=== PATIENT | male | born 1980 | race Caucasian/White ===

== ENCOUNTER 2022-09-05 14:27 | Emergency (ER) | payer OTHER, SELFPAY ==
[2022-09-05] VITALS (11 sets, daily range): BP systolic 134–171; BP diastolic 87–110; PULSE 79–106; RESP 12–23; TEMP 36.9; O2SAT 97–100; BMI 29.7
--- NOTE | 2022-09-05 14:37 | DI.RAD.S_ITS ---
PROCEDURE: XR CHEST 1V INDICATIONS: chest pain TECHNIQUE: One view of the chest was acquired. COMPARISON: None. FINDINGS: Surgical changes and devices: None. Lungs and pleura: Lungs are clear. No pleural effusions or pneumothorax. Mediastinum: Mediastinal contours appear normal. Heart size is normal. Bones and chest wall: No suspicious bony lesions. Overlying soft tissues appear unremarkable. IMPRESSION: No acute process. Dictated by: Rj James M.D. on 09/05/2022 at 14:53 Approved by: Rj James M.D. on 09/05/2022 at 14:53
--- NOTE | 2022-09-05 14:57 | ED_ITS ---
HPI - Chest Pain General Chief Complaint: Chest Pain Stated Complaint: chest pain, shortness of breath, nausea Time Seen by Provider: 09/05/22 14:37 Source: patient Mode of arrival: Ambulatory Limitations: no limitations History of Present Illness HPI narrative: Patient is a 42-year-old male. Does admit that he just drank alcohol on a daily basis. His last drink was last evening. He states that several times a week he gets episodes where she becomes very nauseous and vomiting. It lasts for several hours/days and then completely resolves. He sometimes gets palpitations with them. He is never been evaluated for this. He states last evening he got another 1 of the episodes. Has been vomiting multiple times. Has had some blood with his vomit. No change in bowel habits. No abdominal pain. He also s tates this time he is getting some palpitations. This is worse than what he normally has. No fevers. No shortness of breath. Related Data Previous Rx's Medication Instructions Recorded doxycycline monohydrate 100 mg 100 mg PO BID #20 tabs 09/21/18 tablet clobetasol 0.05 % scalp solution 1 applictn topical DAILY PRN scalp 12/31/18 psoriasis #50 mL esomeprazole magnesium 20 mg 20 mg PO DAILY 14 days #14 caps 09/05/22 capsule,delayed release ondansetron 4 mg disintegrating 4 mg PO Q6H PRN nausea and 09/05/22 tablet vomiting #14 tabs Allergies Allergy/AdvReac Type Severity Reaction Status Date / Time No Known Drug Allergies Allergy Unverified 09/21/18 11:02 Review of Systems Constitutional Constitutional: Reports system reviewed and no additional complaints, except as documented Cardiovascular Cardiovascular: Reports system reviewed and no additional complaints, except as documented Respiratory Respiratory: Reports system reviewed and no additional complaints, except as documented Gastrointestinal Gastrointestinal: Reports system reviewed and no additional complaints, except as documented Genitourinary Genitourinary: Reports system reviewed and no additional complaints, except as documented Integumentary/Breasts Skin/Breast: Reports system reviewed and no additional complaints, except as documented Patient History Medical History Eczema (~2008) Plantar warts (~2009) Psoriasis (~2011) Social History Smoking Status: Former smoker Tobacco: How many years used: 5 second hand exposure: Yes alcohol intake: current (beer maybe 3 times a week.) substance use type: does not use Smoking Status: Former smoker alcohol intake frequency: 3 or more drinks per day Alcohol type: beer Substance Use Type: does not use Exam Initial Vital Signs Initial Vital Signs: Vital Signs Temperature 98.4 F 09/05/22 14:35 Pulse Rate 106 H 09/05/22 14:35 Respiratory Rate 20 09/05/22 14:35 Blood Pressure 171/110 H 09/05/22 14:35 Pulse Oximetry 98 09/05/22 14:35 Oxygen Delivery Method Room Air 09/05/22 14:35 Const General: cooperative, healthy appearing and No ill appearing HENMT Head: normal to inspection Resp Effort & Inspection: normal respiratory effort Auscultation: clear to auscultation bilaterally Cardio Rate: regular rate Rhythm: regular rhythm GI Inspection: normal to inspection and non-distended Skin General: no rashes or lesions noted Extrem General: No edema Course Orders Ordered: ED Orders 09/05/22 14:37 XR chest 1V Stat 09/05/22 14:41 EKG-12 Lead Stat 09/05/22 14:44 Complete Blood Count AUTO DIFF Stat Comprehensive Metabolic Panel Stat Lipase Stat Magnesium Stat Discontinued Medications Sodium Chloride (Normal Saline 0.9%) 1,000 mls @ 1,000 mls/hr IV BOLUS ONE Stop: 09/05/22 15:55 Last Admin: 09/05/22 15:07 Dose: 1,000 mls/hr Documented By: RB Ondansetron HCl (Ondansetron 4 Mg/2 Ml Inj) 4 mg IV NOW ONE Stop: 09/05/22 14:57 Last Admin: 09/05/22 15:08 Dose: 4 mg Documented By: RB Pantoprazole Sodium (Pantoprazole 40 Mg Vial) 40 mg IV NOW ONE Stop: 09/05/22 14:57 Last Admin: 09/05/22 15:08 Dose: 40 mg Documented By: RB Vital Signs Vital signs: Vital Signs - 8 hr 09/05/22 14:35 Temperature 98.4 F Pulse Rate 106 H Respiratory Rate 20 Blood Pressure 171/110 H Pulse Oximetry 98 Oxygen Delivery Method Room Air MDM - Chest Pain Lab Data 09/05/22 14:44 09/05/22 14:44 Labs: Lab Results 09/05/22 09/05/22 Range/Units 14:44 14:44 WBC 5.2 (4.5-11.0) X10^3/uL RBC 4.17 L (4.5-5.9) X10^6/uL Hgb 15.3 (13.5-17.5) g/dL Hct 44.1 (41-53) % MCV 105.8 H (80-100) fL MCH 36.8 H (26-34) PG MCHC 34.8 (30-36) % RDW 14.7 (11.6-14.8) % Plt Count 226 (150-400) X10^3/uL Neut % (Auto) 51.6 (50-75) % Lymph % (Auto) 36.5 (25-40) % [place] % (Auto) 10.6 (3-14) % Eos % (Auto) 0.3 L (2-4) % Baso % (Auto) 1.0 (0-2) % Neut # (Auto) 2700 (5607-0649) /uL Lymph # (Auto) 1900 (3537-1676) /uL [place] # (Auto) 500 (0-900) /uL Eos # (Auto) 0 (0-450) /uL Baso # (Auto) 0 (0-100) /uL Sodium 132 L (137-145) mmol/L Potassium 4.0 (3.4-5.1) mmol/L Chloride 91 L (98-107) mmol/L Carbon Dioxide 29 (22-32) mmol/L BUN 13 (9-20) mg/dL Creatinine 1.43 H (0.66-1.25) mg/dL Estimated GFR > 60 (>60) mL/min BUN/Creatinine Ratio 9.1 (6-22) Glucose 152 H (70-100) mg/dL Calcium 8.9 (8.4-10.2) mg/dL Magnesium 1.6 (1.6-2.3) mg/dL Total Bilirubin 2.7 H (0.2-1.3) mg/dL AST 279 H (17-59) IU/L ALT 113 H (<50) IU/L Alkaline Phosphatase 166 H (38-126) U/L Total Protein 6.6 (6.3-8.2) g/dL Albumin 3.4 L (3.5-5.0) g/dL Globulin 3.2 (1.7-4.1) g/dL Albumin/Globulin Ratio 1.1 (1.0-2.8) Lipase 280 (23-300) U/L Imaging Data Chest x-ray: Radiologist's Impression: PROCEDURE:? XR CHEST 1V ? INDICATIONS:? chest pain ? TECHNIQUE:? One view of the chest was acquired.? ? COMPARISON:? None. ? FINDINGS:? ? Surgical changes and devices:? None.? ? Lungs and pleura:? Lungs are clear.? No pleural effusions or pneumothorax.? ? Mediastinum:? Mediastinal contours appear normal.? Heart size is normal.? ? Bones and chest wall:? No suspicious bony lesions.? Overlying soft tissues appear unremarkable.? ? IMPRESSION:? No acute process. ECG Data Attestation: I personally reviewed and interpreted this ECG as follows: Interpretation: Sinus rhythm Ventricular rate 94 Normal axis Normal QRS Normal QTC No ST T wave changes MDM Narrative Medical decision making narrative: Patient states he is feeling better after the Zofran in the Protonix in the fluids. His electrolytes are unremarkable. Does have elevations in his LFTs but he has no right upper quadrant pain. I suspect that this is secondary to his alcohol use and not necessarily a result of acute cholecystitis. I did talk with him about this. Discussed that he should try to cut back on his alcohol and will give him the phone number for General surgery as he is most likely going to need an upper endoscopy. No fevers. Will send home with a prescription for a proton pump inhibitor and also Zofran. No indication for radiologic studies. He was given return precautions. He expressed understanding and agreement with plan. Discharge Plan Departure Patient Disposition: Home Clinical Impression: Nausea, Abdominal pain Instructions: DI for Abdominal Pain-Adult, DI for Nausea -- Adult Activity Restrictions/Additional Instructions: I do recommend that you consider cutting back on the amount that your drinking. Your liver function tests are elevated today and I suspect that this is probably because of the drinking. You do need to contact your primary doctor for follow- up. I also recommend that you use the medications that you were given prescriptions for today as directed. Return to the emergency department for new symptoms. Prescriptions: New ondansetron 4 mg tablet,disintegrating 4 mg PO Q6H PRN (Reason: nausea and vomiting) Qty: 14 0RF esomeprazole magnesium 20 mg capsule,delayed release(DR/EC) 20 mg PO DAILY 14 Days Qty: 14 0RF No Action clobetasol 0.05 % solution 1 applictn TOP DAILY PRN (Reason: scalp psoriasis) Qty: 50 3RF doxycycline monohydrate 100 mg tablet 100 mg PO BID Qty: 20 3RF Referrals: Leanna Wellington MD [Physician] - Stand Alone Forms: Patient Portal/API
[2022-09-05 15:02] LABS: Add Manual Diff / Slide Review NO; Basophils Absolute Auto 0 /uL (0-100); Eosinophils Absolute Auto 0 /uL (0-450); Eosinophils Percent Auto 0.3 % (2-4); Hematocrit 44.1 % (41-53); Hemoglobin 15.3 g/dL (13.5-17.5); Lymphocytes Absolute Auto 1900 /uL (1100-4500); Lymphocytes Percent Auto 36.5 % (25-40); Mean Corpuscular HGB Conc 34.8 % (30-36); Mean Corpuscular Hemoglobin 36.8 PG (26-34); Mean Corpuscular Volume 105.8 fL (80-100); Monocytes Absolute Auto 500 /uL (0-900); Monocytes Percent Auto 10.6 % (3-14); Neutrophils Absolute Auto 2700 /uL (1500-7000); Neutrophils Percent Auto 51.6 % (50-75); Platelet Count 226 X10^3/uL (150-400); Red Blood Cell Count 4.17 X10^6/uL (4.5-5.9); Red Cell Distribution Width 14.7 % (11.6-14.8); White Blood Cell Count 5.2 X10^3/uL (4.5-11.0)
[2022-09-05] MEDS: SODIUM CHLORIDE 0.9% 1,000 ML 1000 ML IV (15:07)
[2022-09-05 15:08] LABS: Albumin 3.4 g/dL (3.5-5.0); Albumin Globulin Ratio 1.1 (1.0-2.8); Alkaline Phosphatase 166 U/L (38-126); Aspartate Aminotransferase 279 IU/L (17-59); BUN Creatinine Ratio 9.1 (6-22); Bilirubin Total 2.7 mg/dL (0.2-1.3); Blood Urea Nitrogen 13 mg/dL (9-20); Calcium 8.9 mg/dL (8.4-10.2); Carbon Dioxide 29 mmol/L (22-32); Chloride 91 mmol/L (98-107); Estimated Glomerular Filt Rate > 60 mL/min (>60); Globulin 3.2 g/dL (1.7-4.1); Glucose 152 mg/dL (70-100); Magnesium 1.6 mg/dL (1.6-2.3); Sodium 132 mmol/L (137-145); Total Protein 6.6 g/dL (6.3-8.2)
[2022-09-05] MEDS: PANTOPRAZOLE 40 MG VIAL IV (15:08)
[2022-09-05] MEDS: ONDANSETRON 4 MG/2 ML INJ IV (15:08)
[2022-09-05 15:13] LABS: Alanine Aminotransferase 113 IU/L (<50)
[2022-09-05 15:14] LABS: HEMOLYSIS 17 (0-50); Lipase 280 U/L (23-300)
== END 2022-09-05 16:33 | disposition home or self-care (01) ==
PROVIDERS: Emergency Provider Emergency Medicine
DX: R11.2 Nausea with vomiting, unspecified (principal); R10.9 Unspecified abdominal pain; R00.2 Palpitations
CPT/HCPCS: 36415; 71045; 80053; 83690; 83735; 85025; 93005; 96361; 96374; 96375; 99284; C9113; J2405

== ENCOUNTER → 2023-07-11 09:04 | Outpatient (CLI) | payer OTHER, MEDICAID, SELFPAY ==
[2023-07-11 19:28] LABS: Add Manual Diff / Slide Review NO; Basophils Absolute Auto 0 /uL (0-100); Basophils Percent Auto 0.5 % (0-2); Eosinophils Absolute Auto 100 /uL (0-450); Eosinophils Percent Auto 1.7 % (2-4); Hematocrit 44.2 % (41-53); Hemoglobin 15.3 g/dL (13.5-17.5); Lymphocytes Absolute Auto 1100 /uL (1100-4500); Mean Corpuscular HGB Conc 34.6 % (30-36); Mean Corpuscular Hemoglobin 33.9 PG (26-34); Mean Corpuscular Volume 98.1 fL (80-100); Monocytes Absolute Auto 400 /uL (0-900); Monocytes Percent Auto 8.5 % (3-14); Neutrophils Absolute Auto 3200 /uL (1500-7000); Neutrophils Percent Auto 67.3 % (50-75); Platelet Count 248 X10^3/uL (150-400); Red Blood Cell Count 4.51 X10^6/uL (4.5-5.9); Red Cell Distribution Width 12.9 % (11.6-14.8); White Blood Cell Count 4.8 X10^3/uL (4.5-11.0)
[2023-07-11 19:55] LABS: HEMOLYSIS < 15 (0-50)
[2023-07-11 19:56] LABS: Alanine Aminotransferase 47 IU/L (<50); Albumin 4.1 g/dL (3.5-5.0); Albumin Globulin Ratio 1.6 (1.0-2.8); Alkaline Phosphatase 71 U/L (38-126); Aspartate Aminotransferase 56 IU/L (17-59); BUN Creatinine Ratio 11.5 (6-22); Bilirubin Total 0.9 mg/dL (0.2-1.3); Blood Urea Nitrogen 15 mg/dL (9-20); Calcium 9.5 mg/dL (8.4-10.2); Carbon Dioxide 30 mmol/L (22-32); Chloride 102 mmol/L (98-107); Cholesterol 177 mg/dL (140-199); Estimated Glomerular Filt Rate > 60 mL/min (>60); Globulin 2.6 g/dL (1.7-4.1); Glucose 102 mg/dL (70-100); HDL Cholesterol 95 mg/dL (40-60); LDL Cholesterol Calculated 65 mg/dL (<100); Sodium 137 mmol/L (137-145); Total Protein 6.7 g/dL (6.3-8.2); Triglycerides 85 mg/dL (35-150)
[2023-07-11 20:36] LABS: Hep C Virus Ab w/Reflex Quant NEGATIVE s/c (NEGATIVE)
== END ==
PROVIDERS: PCP Physician Assistant; Visit Provider Physician Assistant
DX: R79.9 Abnormal finding of blood chemistry, unspecified (principal); Z13.6 Encounter for screening for cardiovascular disorders; R74.8 Abnormal levels of other serum enzymes; I10 Essential (primary) hypertension; Z11.59 Encounter for screening for other viral diseases
CPT/HCPCS: 80053; 80061; 81002; 85025; 86803